=== PATIENT | female | born 1990 | race Native Hawaiian/Other Pacific Islander ===

== ENCOUNTER 2020-05-10 10:35 | Emergency (ER) | payer OTHER ==
[~2020-05-10] VITALS: Ht 165.1 cm; Wt 65.8 kg
[2020-05-10 10:52] VITALS: BP 114/82; TEMP 99.1
[2020-05-10 11:23] LABS: PLATELET COUNT 170 K/uL (152-353)
[2020-05-10 11:26] LABS: SODIUM 137 mmol/L (136-145)
[2020-05-10 11:40] LABS: PARTIAL THROMBOPLASTIN TIME 26.3 SECONDS (24.5-33.6)
== END 2020-05-10 13:11 | disposition home or self-care (01) ==
LOC: ED 10:35
PROVIDERS: Hospitalist
DX: J45.901 Unspecified asthma with (acute) exacerbation (principal); R07.89 Other chest pain; F17.210 Nicotine dependence, cigarettes, uncomplicated
CPT/HCPCS: 80053; 81000; 81025; 82550; 83880; 84484; 85027; 85610; 85730; 93005; 96374; 96375; 99284; J1100; J2405

== ENCOUNTER 2020-06-15 12:50 | Emergency (ER) | payer OTHER ==
[~2020-06-15] VITALS: Ht 165.1 cm; Wt 71.7 kg
[2020-06-15 13:15] VITALS: TEMP 99
[2020-06-15 15:07] LABS: PLATELET COUNT 194 K/uL (152-353)
[2020-06-15 15:14] LABS: POTASSIUM 3.9 mmol/L (3.6-5.2)
[2020-06-15 16:26] VITALS: BP 108/68
== END 2020-06-15 16:26 | disposition home or self-care (01) ==
LOC: ED 12:50
PROVIDERS: Family Medicine
DX: J32.8 Other chronic sinusitis (principal); R51.9 Headache, unspecified; J06.9 Acute upper respiratory infection, unspecified; F17.210 Nicotine dependence, cigarettes, uncomplicated
CPT/HCPCS: 80053; 81000; 81025; 82728; 85027; 96372; 99283; J1885

== ENCOUNTER 2020-06-19 21:08 | Emergency (ER) | payer OTHER ==
[~2020-06-19] VITALS: Ht 165.1 cm; Wt 71.7 kg
[2020-06-19 21:15] VITALS: TEMP 98.9
[2020-06-19 22:16] VITALS: BP 125/80
== END 2020-06-19 22:30 | disposition home or self-care (01) ==
LOC: ED 21:08
PROC: 2W2JX4Z Dressing of Right Finger using Bandage (ICD-10-PCS; principal; 2020-06-19)
DX: T23.021A Burn of unspecified degree of single right finger (nail) except thumb, initial encounter (principal); T31.0 Burns involving less than 10% of body surface; X13.1XXA Other contact with steam and other hot vapors, initial encounter; Y92.511 Restaurant or cafe as the place of occurrence of the external cause
CPT/HCPCS: 96372; 99283; J0696; J1170; J2405

== ENCOUNTER 2021-03-23 13:59 | Emergency (ER) | payer OTHER ==
[~2021-03-23] VITALS: Ht 165.1 cm; Wt 64.9 kg
[2021-03-23 14:34] VITALS: TEMP 97.4
[2021-03-23 18:05] VITALS: BP 115/76
== END 2021-03-23 18:05 | disposition home or self-care (01) ==
LOC: ED 13:59
DX: J06.9 Acute upper respiratory infection, unspecified (principal); Z20.822 Contact with and (suspected) exposure to COVID-19; F17.210 Nicotine dependence, cigarettes, uncomplicated
CPT/HCPCS: 87635; 99283; U0003

== ENCOUNTER 2021-08-11 11:49 | Outpatient (CLI) | payer OTHER ==
[2021-08-11 12:12] LABS: PLATELET COUNT 210 K/uL (152-353)
== END 2021-08-11 19:15 | disposition home or self-care (01) ==
LOC: LABW 11:49
PROVIDERS: ATTEND Family Medicine
DX: F41.9 Anxiety disorder, unspecified (principal); G25.81 Restless legs syndrome; J45.909 Unspecified asthma, uncomplicated; R10.9 Unspecified abdominal pain; F48.9 Nonpsychotic mental disorder, unspecified
CPT/HCPCS: 36415; 80053; 80061; 81000; 84439; 84443; 85027

== ENCOUNTER 2021-09-05 09:06 | Outpatient (CLI) | payer OTHER | END 2021-09-05 19:02 | disposition home or self-care (01) | LOC: LABW 09:06 | PROVIDERS: ATTEND Family Medicine | DX: U07.1 COVID-19 (principal); Z20.822 Contact with and (suspected) exposure to COVID-19; R50.9 Fever, unspecified; R05.9 Cough, unspecified; J02.9 Acute pharyngitis, unspecified | CPT/HCPCS: 87635; G2023; U0003 ==

== ENCOUNTER 2021-09-12 15:49 | Outpatient (CLI) | payer OTHER | END 2021-09-12 19:06 | disposition home or self-care (01) | LOC: LABW 15:49 | PROVIDERS: ATTEND Family Medicine | DX: Z20.822 Contact with and (suspected) exposure to COVID-19 (principal) | CPT/HCPCS: 87635; G2023; U0003 ==

== ENCOUNTER 2021-09-21 13:08 | Outpatient (CLI) | payer OTHER | END 2021-09-21 19:35 | disposition home or self-care (01) | LOC: RAD 13:08 | PROVIDERS: ATTEND Family Medicine | DX: M54.50 Low back pain, unspecified (principal); M25.561 Pain in right knee; Z86.16 Personal history of COVID-19; F41.9 Anxiety disorder, unspecified; R05.9 Cough, unspecified; R50.9 Fever, unspecified; Z09 Encounter for follow-up examination after completed treatment for conditions other than malignant neoplasm ==

== ENCOUNTER 2021-12-15 16:16 | Outpatient (CLI) | payer OTHER | END 2021-12-15 19:07 | disposition home or self-care (01) | LOC: LABW 16:16 | PROVIDERS: ATTEND Family Medicine | DX: N91.1 Secondary amenorrhea (principal) | CPT/HCPCS: 36415; 84702 ==

== ENCOUNTER 2022-01-17 09:50 | Emergency (ER) | payer OTHER ==
[~2022-01-17] VITALS: Ht 165.1 cm; Wt 81.6 kg
[2022-01-17 09:55] VITALS: TEMP 98
[2022-01-17 11:57] VITALS: BP 128/88
== END 2022-01-17 11:59 | disposition home or self-care (01) ==
LOC: ED 09:50
DX: M54.89 Other dorsalgia (principal); S30.0XXA Contusion of lower back and pelvis, initial encounter; S20.223A Contusion of bilateral back wall of thorax, initial encounter; W17.89XA Other fall from one level to another, initial encounter; Y92.89 Other specified places as the place of occurrence of the external cause
CPT/HCPCS: 96372; 99283; J1885; J2360

== ENCOUNTER 2022-03-28 23:52 | Emergency (ER) | payer OTHER ==
[~2022-03-28] VITALS: Ht 165.1 cm; Wt 72.6 kg
[2022-03-29 00:28] LABS: POTASSIUM 3.5 mmol/L (3.6-5.2)
[2022-03-29 01:02] LABS: PARTIAL THROMBOPLASTIN TIME 24.7 SECONDS (24.5-33.6)
[2022-03-29 01:15] LABS: PLATELET COUNT 186 K/uL (152-353)
[2022-03-29 02:10] VITALS: BP 110/65; TEMP 98
== END 2022-03-29 02:15 | disposition home or self-care (01) ==
LOC: ED 23:52
PROVIDERS: Family Medicine
DX: R07.89 Other chest pain (principal); F41.0 Panic disorder [episodic paroxysmal anxiety]
CPT/HCPCS: 36415; 80053; 82550; 84484; 85027; 85610; 85730; 93005; 96360; 96374; 99284; J1885

== ENCOUNTER 2022-05-19 07:34 | Emergency (ER) | payer OTHER ==
[~2022-05-19] VITALS: Ht 165.1 cm; Wt 72.6 kg
[2022-05-19 07:37] VITALS: BP 133/85; TEMP 96.3
== END 2022-05-19 08:22 | disposition home or self-care (01) ==
LOC: ED 07:34
PROC: 2W2EX4Z Dressing of Right Hand using Bandage (ICD-10-PCS; principal; 2022-05-19)
PROC: 2W2CX4Z Dressing of Right Lower Arm using Bandage (ICD-10-PCS; 2022-05-19)
DX: T23.211A Burn of second degree of right thumb (nail), initial encounter (principal); T23.151A Burn of first degree of right palm, initial encounter; T23.171A Burn of first degree of right wrist, initial encounter; T31.0 Burns involving less than 10% of body surface; X10.2XXA Contact with fats and cooking oils, initial encounter; Y93.G3 Activity, cooking and baking; Y92.89 Other specified places as the place of occurrence of the external cause
CPT/HCPCS: 99283